=== PATIENT | female | born 1985 | race Caucasian/White ===

== ENCOUNTER 2017-03-27 21:15 | Emergency (ER) | payer OTHER ==
[~2017-03-27 21:15] MED LIST: FERROUS SULFAT325 MG PO; MOTRIN600 MG PO; PERCOCET 5/3251 TA1 PO; PRENATAL COMPLE1 TAB PO
[2017-03-27 21:52] LABS: BASOPHILS 0.1 % (0-2); EOSINOPHILS 0.2 % (0-7); IMMATURE GRANULOCYTES 0.2 % (0-5); LYMPHOCYTES 5.7 % (15-50); MCH 29.7 pg (26.0-34.0); MCHC 34.9 g/dL (31.0-37.0); MCV 85.1 fL (80.0-100.0); MEAN PLATELET VOLUME 10.3 fL (7.4-10.4); NEUTROPHILS 89.8 % (40-80); PLATELET COUNT 189 10x3/uL (130-400); RBC 5.05 10x6/uL (4.00-5.40); RDW 13.3 % (11.5-14.5); WBC 8.8 10x3/uL (4.8-10.8)
[2017-03-27 22:04] LABS: ALBUMIN 4.2 g/dL (3.4-5.0); ALKALINE PHOSPHATASE 60 U/L (46-116); ALT (SGPT) 29 U/L (10-68); CALC OSMOLALITY 275 mosm/kg (275-300); CALCIUM 8.6 mg/dL (8.5-10.1); CARBON DIOXIDE 23.7 mmol/L (21.0-32.0); CHLORIDE - SERUM 103 mmol/L (98-107); CREATININE - SERUM 0.9 mg/dL (0.6-1.3); GLUCOSE 98 mg/dL (74-106); POTASSIUM - SERUM 3.5 mmol/L (3.5-5.1); PROTEIN - SERUM 8.3 g/dL (6.4-8.2); SODIUM 137 mmol/L (136-145); UREA NITROGEN 19 mg/dL (7-18); eGFR NON AFRICAN AMERICAN 77 mL/min (90-120)
== END 2017-03-27 22:45 | disposition home or self-care (01) ==
LOC: D.ER 21:15
PROVIDERS: Family Medicine
DX: J11.1 Influenza due to unidentified influenza virus with other respiratory manifestations (principal); R11.2 Nausea with vomiting, unspecified

== ENCOUNTER 2019-09-22 08:14 | Inpatient (IN) | payer MEDICAID ==
[~2019-09-22] VITALS: Ht 160 cm; Wt 72.6 kg
[2019-09-22 09:00] VITALS: BP 149/88
[2019-09-22 09:13] LABS: BASOPHILS 0.5 % (0-2); CALC OSMOLALITY 277 mosm/kg (275-300); CALCIUM 11.1 mg/dL (8.5-10.1); CARBON DIOXIDE 28.9 mmol/L (21.0-32.0); CHLORIDE - SERUM 104 mmol/L (98-107); CREATININE - SERUM 0.7 mg/dL (0.6-1.3); EOSINOPHILS 4.4 % (0-7); GLUCOSE 93 mg/dL (74-106); HEMATOCRIT 43.8 % (36.0-48.0); IMMATURE GRANULOCYTES 0.3 % (0-5); LYMPHOCYTES 31.5 % (15-50); MCH 29.9 pg (26.0-34.0); MCHC 34.2 g/dL (31.0-37.0); MCV 87.4 fL (80.0-100.0); MEAN PLATELET VOLUME 10.3 fL (7.4-10.4); NEUTROPHILS 55.3 % (40-80); POTASSIUM - SERUM 5.5 mmol/L (3.5-5.1); RBC 5.01 10x6/uL (4.00-5.40); SODIUM 139 mmol/L (136-145); UREA NITROGEN 13 mg/dL (7-18); WBC 7.6 10x3/uL (4.8-10.8); eGFR NON AFRICAN AMERICAN > 90 mL/min (90-120)
[2019-09-22 09:16] LABS: HCG URINE NEGATIVE (NEGATIVE)
[2019-09-22 09:20] LABS: BILIRUBIN NEGATIVE (NEGATIVE); GLUCOSE NEGATIVE (NEGATIVE); KETONE NEGATIVE (NEGATIVE); NITRITE NEGATIVE (NEGATIVE); UROBILINOGEN NORMAL (NORMAL)
[2019-09-22 09:21] LABS: ALBUMIN 3.8 g/dL (3.4-5.0); ALKALINE PHOSPHATASE 76 U/L (30-120); ALT (SGPT) 48 U/L (10-68); AMYLASE - SERUM 33 U/L (25-115); BILIRUBIN - TOTAL 0.59 mg/dL (0.2-1.3); LIPASE 107 U/L (73-393); PROTEIN - SERUM 8.4 g/dL (6.4-8.2)
[2019-09-22 09:24] LABS: PLATELET COUNT 281 10x3/uL (130-400)
[2019-09-22 09:25] LABS: TROPONIN-I < 0.017 ng/mL (0.000-0.060)
[2019-09-22 10:00] VITALS: BP 151/77
[2019-09-22 10:54] VITALS: BP 143/90
[2019-09-22 12:00] VITALS: BP 136/74
[2019-09-22] MEDS ORDERED: MELATONIN10 M1 PO (15:16)
[2019-09-22 15:26] VITALS: BMI 28.4
[2019-09-22 17:45] VITALS: BP 125/90
--- NOTE | 2019-09-22 19:00 | NUR ---
PATIENT ALERT AND ORIENTED WHEN ENTERING THE ROOM. PATIENT HAS LEFT HAND IV THAT IS INFUSING NS @ 125. ASSESSMENT COMPLETE. CHARTED. REVIEWED SAFETY WITH PATIENT AND TO USE CALL LIGHT WHEN IN NEED OF ASSISTANCE. SPOKE WITH PATIENT ABOUT UPCOMING SURGERY TUESDAY AND CLEAR LIQUID DIET UNTIL THEN, PATIENT VERBALIZES UNDERSTANDING. DENIES FURTHER NEEDS AT THIS TIME. CALL LIGHT CLOSE. CPOC.
[2019-09-22 21:00] VITALS: BP 107/60
--- NOTE | 2019-09-22 21:36 | NUR ---
PATIENT REQUESTING RESTART HS MEDICATIONS. CALL TO STACIA RAMOS APRN AND MIGUEL ORDERS TO RESTART HOME HS MEDICATION.
--- NOTE | 2019-09-22 22:05 | NUR ---
ADMINISTERED HS MEDICATIONS. PATIENT TOLERATED WELL.
--- NOTE | 2019-09-23 00:30 | NUR ---
RESTING WITH UNLABORED RESPIRATIONS AND NO SIGNS OR SYMPTOMS OF DISTRESS AT THIS TIME. CALL LIGHT CLOSE. CPOC.
[2019-09-23 05:34] LABS: BASOPHILS 0.7 % (0-2); EOSINOPHILS 6.5 % (0-7); HEMATOCRIT 36.9 % (36.0-48.0); HEMOGLOBIN 12.1 g/dL (12-16); IMMATURE GRANULOCYTES 0.2 % (0-5); LYMPHOCYTES 43.9 % (15-50); MCH 29.2 pg (26.0-34.0); MCHC 32.8 g/dL (31.0-37.0); MCV 88.9 fL (80.0-100.0); MONOCYTES 8.8 % (2-11); NEUTROPHILS 39.9 % (40-80); PLATELET COUNT 260 10x3/uL (130-400); RBC 4.15 10x6/uL (4.00-5.40); RDW 12.9 % (11.5-14.5); WBC 5.7 10x3/uL (4.8-10.8)
[2019-09-23 06:00] LABS: ALKALINE PHOSPHATASE 63 U/L (30-120); BILIRUBIN - TOTAL 0.49 mg/dL (0.2-1.3); CALC OSMOLALITY 281 mosm/kg (275-300); CARBON DIOXIDE 28.1 mmol/L (21.0-32.0); CHLORIDE - SERUM 107 mmol/L (98-107); GLUCOSE 92 mg/dL (74-106); MAGNESIUM - SERUM 1.6 mg/dL (1.8-2.4); PHOSPHOROUS 4.5 mg/dL (2.5-4.9); PROTEIN - SERUM 6.4 g/dL (6.4-8.2); SODIUM 142 mmol/L (136-145); UREA NITROGEN 10 mg/dL (7-18)
[2019-09-23 06:12] LABS: ALT (SGPT) 35 U/L (10-68); CALCIUM 7.9 mg/dL (8.5-10.1); CREATININE - SERUM 0.9 mg/dL (0.6-1.3); POTASSIUM - SERUM 3.6 mmol/L (3.5-5.1); eGFR NON AFRICAN AMERICAN 76 mL/min (90-120)
[2019-09-23 09:01] VITALS: BP 114/75
--- NOTE | 2019-09-23 09:49 | NUR ---
RESTING IN BED, NO DISTRESS NOTED, IV AND GARNETT MECHANIC INFUSING PER HAND, CONT TO MONITOR PAIN
[2019-09-23 12:25] VITALS: BP 113/72
[2019-09-23 16:00] VITALS: BP 115/57
--- NOTE | 2019-09-23 19:00 | NUR ---
ALERT AND ORIENTED WHEN ENTERING THE ROOM. PATIENT HAS PATENT LEFT HAND IV THAT IS INFUSING NS PER ORDER. DILAUDID CLIENT ENGAGEMENT MANAGER INFUSING WITH CORRECT LIMITS PER ORDER. DISCUSSED HIBBA CLEANSE AND NPO AT MIDNIGHT STATUS WITH PATIENT. PATIENT VERBALIZES UNDERSTANDING. ASSESSMENT COMPLETE. PATIENT REQUESTS SNACK. PROVIDED. DENIES FURTHER NEEDS AT THIS TIME. CPOC.
[2019-09-23 20:05] VITALS: BP 115/68
[2019-09-24] VITALS: BP 121/70
--- NOTE | 2019-09-24 02:00 | NUR ---
RESTING WITH NO SIGNS OR SYMPTOMS OF DISTRESS AT THIS TIME. CALL LIGHT REMAINS CLOSE TO PATIENT. CPOC.
[2019-09-24 04:00] VITALS: BP 118/67
[2019-09-24 05:00] LABS: BASOPHILS 0.9 % (0-2); EOSINOPHILS 5.6 % (0-7); HEMOGLOBIN 12.2 g/dL (12-16); IMMATURE GRANULOCYTES 0.3 % (0-5); LYMPHOCYTES 39.7 % (15-50); MCH 29.4 pg (26.0-34.0); MCV 89.2 fL (80.0-100.0); MONOCYTES 7.9 % (2-11); NEUTROPHILS 45.6 % (40-80); PLATELET COUNT 256 10x3/uL (130-400); RBC 4.15 10x6/uL (4.00-5.40); RDW 12.9 % (11.5-14.5); WBC 6.4 10x3/uL (4.8-10.8)
[2019-09-24 05:30] LABS: CALC OSMOLALITY 276 mosm/kg (275-300); CALCIUM 7.9 mg/dL (8.5-10.1); CARBON DIOXIDE 26.7 mmol/L (21.0-32.0); CHLORIDE - SERUM 106 mmol/L (98-107); CREATININE - SERUM 0.9 mg/dL (0.6-1.3); GLUCOSE 93 mg/dL (74-106); PHOSPHOROUS 3.7 mg/dL (2.5-4.9); POTASSIUM - SERUM 3.6 mmol/L (3.5-5.1); SODIUM 138 mmol/L (136-145); eGFR NON AFRICAN AMERICAN 76 mL/min (90-120)
[2019-09-24 05:35] LABS: UREA NITROGEN 14 mg/dL (7-18)
--- NOTE | 2019-09-24 08:04 | NUR ---
ALERT AND ORIENTED. LUNGS CLEAR BILATERLLY. HEART SOUNDS S1 AND S2 HEARD IN ALL STARR. BOWEL SOUNDS ACTIVE X 4. IV TO LEFT HAND PATENT WITHOUT REDNESS. DENIES NEEDS. BED LOW. CALL ELIZABETH AND PERSONAL ITEMS IN REACH. WILL CONTINUE TO MONITOR.
[2019-09-24 08:39] VITALS: BP 112/72
--- NOTE | 2019-09-24 10:21 | NUR ---
PREOP MEDS GIVEN PER ORDER.
--- NOTE | 2019-09-24 10:32 | NUR ---
PATIENT TAKEN FOR PROCEDURE.
[2019-09-24 13:30] VITALS: Ht 160 cm; Wt 72.6 kg
[2019-09-24 14:44] VITALS: BP 114/70
--- NOTE | 2019-09-24 14:46 | NUR ---
PT BACK TO ROOM, PT GETTING FREQUENT VITALS, VSS AT THIS TIME. RESTING COMFORTABLY. DENIES ANY NEEDS. WILL MONITOR CLOSELY.
--- NOTE | 2019-09-24 14:54 | NUR ---
STARTED IV ABX, RESTING COMFORTABLY. TOLERATING ICE CHIPS WELL. DENIES ANY NEEDS. BED IN LOWEST POSITION, BED RAILS X2, CALL LIGHT WITHIN REACH. WILL CONTINUE TO MONITOR.
--- NOTE | 2019-09-24 17:30 | NUR ---
NEW BAG OF FLUIDS. REQUESTING BEEF/CHIKEN BROTH FOR DINNER, WILL PROVIDE. DENIES ANY NEEDS. BED IN LOWEST POSITION, BED RAILS X2, CALL LIGHT WITHIN REACH. WILL CONTINUE TO MONITOR.
[2019-09-24 20:00] VITALS: BP 117/67
--- NOTE | 2019-09-25 03:42 | NUR ---
PATIENT UP TO BEDSIDE COMMODE WITH ASSISTANCE. PAIN NOTED BUT TOLERATED WELL. RETURNED TO BED SAFELY. CALL LIGHT CLOSE. CPOC.
[2019-09-25 04:30] VITALS: BP 113/65
[2019-09-25 06:34] LABS: BASOPHILS 0.1 % (0-2); EOSINOPHILS 0 % (0-7); IMMATURE GRANULOCYTES 0.3 % (0-5); MCH 29.3 pg (26.0-34.0); MCHC 33.3 g/dL (31.0-37.0); MEAN PLATELET VOLUME 10.1 fL (7.4-10.4); MONOCYTES 8.7 % (2-11); NEUTROPHILS 78.9 % (40-80); PLATELET COUNT 255 10x3/uL (130-400); RBC 4.09 10x6/uL (4.00-5.40); RDW 12.6 % (11.5-14.5)
[2019-09-25 06:47] LABS: WBC 11.8 10x3/uL (4.8-10.8)
[2019-09-25 06:57] LABS: CARBON DIOXIDE 27.1 mmol/L (21.0-32.0); POTASSIUM - SERUM 4.1 mmol/L (3.5-5.1)
--- NOTE | 2019-09-25 07:37 | NUR ---
ALERT AND ORIENTED. LUNGS CLEAR BILATERALLY. HEART SOUNDS S1 AND S2 HEARD IN ALL STARR. BOWEL SOUNDS ACTIVE X 4. LAP SITES X 4 TO ABD C/D/I. IV TO LEFT HAND PATENT WITHOUT REDNESS. DENIES NEEDS. BED LOW. CALL ELIZABETH AND PERSONAL ITEMS IN REACH. WILL CONTINUE TO MONITOR.
[2019-09-25 07:59] LABS: PHOSPHOROUS 2.6 mg/dL (2.5-4.9)
[2019-09-25 08:00] VITALS: BP 138/78
[2019-09-25 08:00] LABS: CREATININE - SERUM 1.2 mg/dL (0.6-1.3)
[2019-09-25 12:00] VITALS: BP 113/68
--- NOTE | 2019-09-25 13:10 | NUR ---
PATIENT STATES WANTS TO STAY ANOTHER NIGHT D/T PAIN MANAGEMENT. DR GRIMES AWARE AND DC ORDER HELD PER .
[2019-09-25 16:00] VITALS: BP 126/90
[2019-09-25] MEDS ORDERED: ZOFRAN4 MG PO (18:36)
== END 2019-09-25 20:15 | disposition home or self-care (01) | DRG 416 ==
LOC: D.ER 08:14 → D.MS 12:31
PROVIDERS: Family Medicine; Surgery; ADMIT Family Medicine; ATTEND Family Medicine
PROC: BF001ZZ Plain Radiography of Bile Ducts using Low Osmolar Contrast (ICD-10-PCS; 2019-09-24)
PROC: 0FT40ZZ Resection of Gallbladder, Open Approach (ICD-10-PCS; principal; 2019-09-24 09:00)
DX: K81.9 Cholecystitis, unspecified (principal); K21.9 Gastro-esophageal reflux disease without esophagitis; R10.9 Unspecified abdominal pain